=== PATIENT | male | born 1960 | race Caucasian/White ===

== ENCOUNTER 2023-05-25 05:44 | Emergency (ER) | payer OTHER ==
[2023-05-25] MEDS ORDERED: fentaNYL 50 mcg/mL 1 mL Vial ONE (06:10)
[2023-05-25 06:28] LABS: #Basophils 0.1 10x3/uL (0.0-0.2); #Eosinphils 0.2 10x3/uL (0.0-0.5); #Monocytes 0.7 10x3/uL (0.0-1.1); #Neutrophils 5.5 10x3/uL (1.5-8.4); %Basophils 0.8 % (0.0-2.0); %Eosinophils 2.6 % (0.0-6.0); %Lymphocytes 14.8 % (18.0-47.0); %Monocytes 9.4 % (0.0-10.0); %Neutrophils 72.1 % (40.0-75.0); Hematocrit 38.4 % (38.8-50.0); Mean Corpuscular HGB CONC 31.3 g/dL (32.0-36.0); Mean Corpuscular Hemoglobin 27.6 pg (27.0-33.0); Mean Corpuscular Volume 88.5 fl (81.2-95.1); Mean Platelet Volume 11.8 fl (7.4-10.4); Platelet Count 231 10x3/uL (150-450); RBC Distribution Width 15.9 % (11.5-14.5); Red Blood Cell (RBC) Count 4.34 10x6/uL (4.32-5.72); White Blood Cell (WBC) Count 7.6 10x3/uL (3.5-10.5)
[2023-05-25 06:48] LABS: Troponin I 0.022 ng/mL (< 0.028)
[2023-05-25 06:50] LABS: ALT (SGPT) 18 U/L (8-55); AST (SGOT) 24 U/L (5-34); Albumin 3.3 g/dL (3.4-4.8); Alkaline Phosphatase 96 U/L (40-110); Anion Gap 27 mmol/L (10-20); BUN (Urea Nitrogen) 67 mg/dL (8.4-25.7); Bilirubin, Total 1.5 mg/dL (0.2-1.2); Calc. Creatinine Clearance 0 mL/min (70-130); Calcium 7.7 mg/dL (7.8-10.44); Carbon Dioxide 23 mmol/L (23-31); Chloride 95 mmol/L (98-107); Estimated GFR 3; Globulin 4.7 g/dL (2.4-3.5); Glucose 148 mg/dL (80-115); INR-International Normal Ratio 2.8; Lipase 209 U/L (8-78); Magnesium 2.2 mg/dL (1.6-2.6); PTT 40.4 sec (22.0-33.0); Potassium 4.6 mmol/L (3.5-5.1); Prothrombin Time 29.8 sec (9.5-12.1); Sodium 140 mmol/L (136-145)
[2023-05-25 07:06] LABS: SARS-CoV-2 NAA Rapid Test Not Detected (NotDetected)
[2023-05-25 08:39] LABS: Actual Bicarbonate (HCO3a) 22.4 mEq/L (22-28); Analyzer IN Cardio CS ER; Base Excess (BEa) -1.8 mEq/L (-2.0 to +3.0); CO2 Tension 36.3 mmHg (35.0-45.0); Calcium, Ionized (arterial) 1.16 mmol/L (1.12-1.30); Carboxyhemoglobin (COHb) 0.3 gm% (0.0-3.0); Critical Notified Whom: ED MD; Hematocrit-ABG 38 % (42.0-52.0); O2 Tension (PaO2), arterial 76.6 mmHg (> 80.0); Puncture Site LRA; pH, Arterial 7.408 (7.35-7.45)
[2023-05-25 08:41] LABS: ALT (SGPT) 24 U/L (8-55); AST (SGOT) 38 U/L (5-34); Albumin 3.8 g/dL (3.4-4.8); Alkaline Phosphatase 137 U/L (40-110); Anion Gap 13 mmol/L (10-20); BUN (Urea Nitrogen) 24 mg/dL (8.4-25.7); Bilirubin, Total 0.9 mg/dL (0.2-1.2); Calc. Creatinine Clearance 0 mL/min (70-130); Calcium 8.6 mg/dL (7.8-10.44); Carbon Dioxide 25 mmol/L (23-31); Chloride 106 mmol/L (98-107); Estimated GFR 63; Globulin 3.4 g/dL (2.4-3.5); Glucose 139 mg/dL (80-115); Potassium 4.6 mmol/L (3.5-5.1); Protein, Total 7.2 g/dL (5.8-8.1); Sodium 139 mmol/L (136-145)
[2023-05-25 08:42] LABS: ALV-art Gradient 27.755 mmHg (0-20)
[2023-05-25 09:54] LABS: Troponin I Less than 0.010 ng/mL (< 0.028)
[2023-05-25 16:04] LABS: Troponin I Less than 0.010 ng/mL (< 0.028)
== END 2023-05-25 16:26 ==
LOC: CSHERS 05:44
DX: I24.9 Acute ischemic heart disease, unspecified (principal); I25.10 Atherosclerotic heart disease of native coronary artery without angina pectoris; I11.0 Hypertensive heart disease with heart failure; I50.9 Heart failure, unspecified; I48.91 Unspecified atrial fibrillation; E03.9 Hypothyroidism, unspecified; E78.5 Hyperlipidemia, unspecified; Z79.899 Other long term (current) drug therapy; Z79.82 Long term (current) use of aspirin; Z79.4 Long term (current) use of insulin; Z79.01 Long term (current) use of anticoagulants; Z20.822 Contact with and (suspected) exposure to COVID-19
CPT/HCPCS: 36415; 36600; 71045; 71250; 80053; 82805; 83690; 83735; 83880; 84484; 85025; 85610; 85730; 93005; 96374; J3010; U0002

== ENCOUNTER 2023-12-10 07:51 | Emergency (ER) | payer OTHER ==
[2023-12-10] MEDS ORDERED: Metoprolol Tartrate 5 MG (5 mL) VIAL ONE (08:28)
[2023-12-10] MEDS ORDERED: Furosemide 40 MG (4 mL) VIAL ONE (08:28)
[2023-12-10 08:29] LABS: Bilirubin Neg (Negative); Blood, Urine 150 (Negative); Clarity Clear (Clear); Glucose, Urine (Dipstick) >=1000 mg/dL (Negative); Ketone, Urine Negative (Negative); Leukocyte Negative (Negative); Nitrite Negative (Negative); Protein, Urine (Dipstick) 100 mg/dl (Neg-Trace); Urobilinogen Normal mg/dL (Less than 2)
[2023-12-10 09:19] LABS: #Basophils 0.05 10x3/uL (0.0-0.2); #Eosinphils 0.06 10x3/uL (0.0-0.5); #Monocytes 0.72 10x3/uL (0.0-1.1); #Neutrophils 9.43 10x3/uL (1.5-8.4); %Basophils 0.5 % (0.0-2.0); %Eosinophils 0.5 % (0.0-6.0); %Lymphocytes 6.3 % (18.0-47.0); %Monocytes 6.5 % (0.0-10.0); %Neutrophils 85.7 % (40.0-75.0); Hematocrit 39.9 % (38.8-50.0); Hemoglobin 12.8 g/dL (13.5-17.5); Mean Corpuscular HGB CONC 32.1 g/dL (32.0-36.0); Mean Corpuscular Volume 87.3 fL (81.2-95.1); Mean Platelet Volume 11.3 fL (7.4-10.4); Platelet Count 292 10x3/uL (150-450); RBC Distribution Width 17.6 % (11.5-14.5); Red Blood Cell (RBC) Count 4.57 10x6/uL (4.32-5.72)
[2023-12-10 09:20] LABS: CAUTI Indications for Culture Dysuria,urgency,freq; Squamous Epithelial 0-3 HPF (0-3); WBC/HPF 0-3 HPF (0-3)
[2023-12-10 09:22] LABS: Bacteria/HPF Rare-Few HPF (None Seen); Sperm/HPF Rare HPF (None Seen)
[2023-12-10 09:24] LABS: Urine Culture Reflex No No
[2023-12-10 09:32] LABS: ALT (SGPT) 25 U/L (8-55); AST (SGOT) 42 U/L (5-34); Albumin 3.3 g/dL (3.4-4.8); Alkaline Phosphatase 131 U/L (40-110); Anion Gap 19 mmol/L (10-20); BUN (Urea Nitrogen) 26 mg/dL (8.4-25.7); Bilirubin, Total 1.1 mg/dL (0.2-1.2); Calc. Creatinine Clearance 0 mL/min (70-130); Calcium 9.7 mg/dL (7.8-10.44); Carbon Dioxide 25 mmol/L (23-31); Chloride 100 mmol/L (98-107); Estimated GFR 71; Globulin 4.2 g/dL (2.4-3.5); Glucose 354 mg/dL (80-115); Potassium 4.7 mmol/L (3.5-5.1); Protein, Total 7.5 g/dL (5.8-8.1); Sodium 139 mmol/L (136-145)
[2023-12-10 09:34] LABS: Troponin I 0.017 ng/mL (< 0.028)
[2023-12-10] MEDS ORDERED: Piperacillin/Tazobactam 3.375 GM VIAL ONE (10:41)
[2023-12-10] MEDS ORDERED: VANCOMYCIN IVPB SCH (11:00)
[2023-12-10] MEDS ORDERED: SODIUM CHLORIDE 0.9% IVPB SCH (11:00)
[2023-12-10 12:26] LABS: Lactic Acid 2.2 mmol/L (0.5-2.2)
== END 2023-12-10 15:14 | disposition short-term general hospital (02) ==
LOC: CSHERS 07:51 → EEVIPCON 07:51 → CSHERS 15:14
DX: I48.91 Unspecified atrial fibrillation (principal); L03.116 Cellulitis of left lower limb; L03.115 Cellulitis of right lower limb; I11.0 Hypertensive heart disease with heart failure; I50.9 Heart failure, unspecified; Z79.82 Long term (current) use of aspirin; Z79.899 Other long term (current) drug therapy; Z79.4 Long term (current) use of insulin
CPT/HCPCS: 71045; 80053; 81001; 83605; 83880; 84484; 85025; 87040; 93005; J1940; J2543; J7030

== ENCOUNTER 2024-01-01 10:15 | Observation (INO) | payer OTHER ==
[2024-01-01] MEDS ORDERED: Ondansetron PF 4 MG/2 ML Vial IVP PRN (11:25)
[2024-01-01] MEDS ORDERED: Acetaminophen 650 MG Suppository PR PRN (11:25)
[2024-01-01 11:31] VITALS: BMI 37.2
[2024-01-01] MEDS ORDERED: Dextrose 5% in Water 1,000 ML IV PRN (11:40)
[2024-01-01] MEDS ORDERED: HumaLOG 300 UNITS/3 ML VIAL SC PRN (11:40)
[2024-01-01] MEDS ORDERED: Glucagon 1 MG/ML KIT IM PRN (11:40)
[2024-01-01] MEDS ORDERED: Dextrose 50% Abboject 50 ML SYRINGE SLOW IVP PRN (11:40)
[2024-01-01 12:01] LABS: Anion Gap 16 mmol/L (10-20); BUN (Urea Nitrogen) 16 mg/dL (8.4-25.7); Calc. Creatinine Clearance 108 mL/min (70-130); Calcium 9.1 mg/dL (7.8-10.44); Carbon Dioxide 20 mmol/L (23-31); Chloride 100 mmol/L (98-107); Estimated GFR 75; Glucose 396 mg/dL (80-115); Potassium 4.6 mmol/L (3.5-5.1); Sodium 131 mmol/L (136-145)
[2024-01-01 12:08] LABS: Troponin I 0.023 ng/mL (< 0.028)
[2024-01-01] MEDS: HumaLOG 300 UNITS/3 ML VIAL SC PRN (13:01)
[2024-01-01] MEDS: Enoxaparin 120 MG/0.8 ML SYRINGE SC SCH ×2 (13:01→21:26)
[2024-01-01 16:02] LABS: Troponin I 0.024 ng/mL (< 0.028)
[2024-01-01] MEDS: Carvedilol 25 MG TAB PO SCH (16:16)
[2024-01-01] MEDS ORDERED: Carvedilol 12.5 MG TAB PO SCH (17:00)
[2024-01-01] MEDS: Lisinopril 20 MG TAB PO SCH (21:26)
[2024-01-01] MEDS: Famotidine 20 MG TAB PO SCH (21:27)
[2024-01-01] MEDS: Atorvastatin Calcium 40 MG TAB PO SCH (21:27)
[2024-01-01] MEDS: Hydrochlorothiazide 25 MG TAB PO SCH (21:27)
[2024-01-01] MEDS: levETIRAcetam 500 MG TAB PO SCH (21:27)
[2024-01-01] MEDS: Carbidopa/Levodopa 25-100 mg Tablet PO SCH (21:27)
[2024-01-01] MEDS: Empagliflozin 10 MG TAB PO SCH (21:27)
[2024-01-01] MEDS: Aripiprazole 10 MG TAB PO SCH (21:28)
[2024-01-01] MEDS: Famotidine/PF 20 mg/2ml Vial SLOW IVP SCH (21:28)
[2024-01-01] MEDS: Insulin NPH Human Isophane 100 UNITS/ML (10 ML VIAL) SQ SCH (21:29)
[2024-01-01] MEDS: Acetaminophen 325 MG TAB PO PRN (21:46)
[2024-01-02 04:25] LABS: Anion Gap 13 mmol/L (10-20); BUN (Urea Nitrogen) 14 mg/dL (8.4-25.7); Calc. Creatinine Clearance 147 mL/min (70-130); Carbon Dioxide 22 mmol/L (23-31); Chloride 103 mmol/L (98-107); Cholesterol 143 mg/dl (< 200 Desired); Estimated GFR 99; Glucose 75 mg/dL (80-115); HDL Cholesterol 48 mg/dL (>60 Neg Risk); LDL Cholesterol, Calculated 86 mg/dL; Potassium 4.1 mmol/L (3.5-5.1); Sodium 134 mmol/L (136-145); Triglycerides 43 mg/dL (Less than 150)
[2024-01-02] MEDS: Levothyroxine Sodium 100 MCG TAB PO SCH (06:36)
[2024-01-02] MEDS: Aspirin Chewable 81 MG TAB PO SCH (09:19)
[2024-01-02] MEDS: DULoxetine 30 MG CAP PO SCH (09:19)
[2024-01-02] MEDS: Saccharomyces boulardii 250 MG CAP PO SCH (10:24)
[2024-01-02] MEDS: Thiamine 100 MG TAB PO SCH (10:25)
[2024-01-02] MEDS: Insulin NPH Human Isophane 100 UNITS/ML (10 ML VIAL) SQ SCH (21:54)
[2024-01-02] MEDS: Enoxaparin 120 MG/0.8 ML SYRINGE SC SCH (21:56)
[2024-01-02 23:05] VITALS: BP 105/52; TEMP 97.2
[2024-01-03] MEDS ORDERED: Enoxaparin 120 MG/0.8 ML SYRINGE SC SCH (09:00)
== END 2024-01-02 23:00 ==
LOC: EEVIPCON 10:55 → CSHTELE 10:55 → INTOOBSV 10:55
PROVIDERS: ADMIT Family Medicine; ATTEND Family Medicine
DX: R07.89 Other chest pain (principal); I25.10 Atherosclerotic heart disease of native coronary artery without angina pectoris; I48.19 Other persistent atrial fibrillation; E03.9 Hypothyroidism, unspecified; E11.9 Type 2 diabetes mellitus without complications; I11.0 Hypertensive heart disease with heart failure; I50.9 Heart failure, unspecified; G40.909 Epilepsy, unspecified, not intractable, without status epilepticus; F25.9 Schizoaffective disorder, unspecified; I48.91 Unspecified atrial fibrillation; N40.0 Benign prostatic hyperplasia without lower urinary tract symptoms; G20.A1 Parkinson's disease without dyskinesia, without mention of fluctuations; W19.XXXA Unspecified fall, initial encounter; Z95.5 Presence of coronary angioplasty implant and graft; Z79.82 Long term (current) use of aspirin; Z79.890 Hormone replacement therapy; Z79.899 Other long term (current) drug therapy; Z79.4 Long term (current) use of insulin; Z95.810 Presence of automatic (implantable) cardiac defibrillator
CPT/HCPCS: 36415; 36416; 80048; 80061; 96372; 96374; 96376; G0378; J1650; J1815; S0028

== ENCOUNTER 2024-01-10 23:38 | Observation (INO) | payer OTHER ==
[2024-01-11 00:36] LABS: ALT (SGPT) Less than 7 U/L (8-55); AST (SGOT) 20 U/L (5-34); Albumin 3.2 g/dL (3.4-4.8); Alkaline Phosphatase 139 U/L (40-110); Anion Gap 14 mmol/L (10-20); BUN (Urea Nitrogen) 24 mg/dL (8.4-25.7); Bilirubin, Total 0.6 mg/dL (0.2-1.2); Calc. Creatinine Clearance 0 mL/min (70-130); Calcium 8.7 mg/dL (7.8-10.44); Carbon Dioxide 26 mmol/L (23-31); Chloride 100 mmol/L (98-107); Estimated GFR 55; Globulin 3.6 g/dL (2.4-3.5); Magnesium 1.9 mg/dL (1.6-2.6); Potassium 4.4 mmol/L (3.5-5.1); Protein, Total 6.8 g/dL (5.8-8.1); Sodium 136 mmol/L (136-145)
[2024-01-11 00:37] LABS: #Basophils 0.06 10x3/uL (0.0-0.2); #Eosinphils 0.15 10x3/uL (0.0-0.5); #Monocytes 0.59 10x3/uL (0.0-1.1); #Neutrophils 5.98 10x3/uL (1.5-8.4); %Basophils 0.8 % (0.0-2.0); %Lymphocytes 11.1 % (18.0-47.0); %Monocytes 7.7 % (0.0-10.0); %Neutrophils 77.9 % (40.0-75.0); Hematocrit 34.8 % (38.8-50.0); Hemoglobin 11.2 g/dL (13.5-17.5); Mean Corpuscular HGB CONC 32.2 g/dL (32.0-36.0); Mean Corpuscular Hemoglobin 27.8 pg (27.0-33.0); Mean Corpuscular Volume 86.4 fL (81.2-95.1); Mean Platelet Volume 11.5 fL (7.4-10.4); Platelet Count 283 10x3/uL (150-450); RBC Distribution Width 16.1 % (11.5-14.5); Red Blood Cell (RBC) Count 4.03 10x6/uL (4.32-5.72); White Blood Cell (WBC) Count 7.7 10x3/uL (3.5-10.5)
[2024-01-11 00:38] LABS: Critical Call Chemistry NUR.AEB@0038; Glucose 527 mg/dL (80-115)
[2024-01-11 00:42] LABS: Troponin I 0.014 ng/mL (< 0.028)
[2024-01-11] MEDS ORDERED: Glucagon 1 MG/ML KIT IM PRN (02:05)
[2024-01-11] MEDS ORDERED: Dextrose 50% Abboject 50 ML SYRINGE SLOW IVP PRN (02:05)
[2024-01-11] MEDS ORDERED: HumaLOG 300 UNITS/3 ML VIAL SC PRN (02:05)
[2024-01-11] MEDS ORDERED: Dextrose 5% in Water 1,000 ML IV PRN (02:05)
[2024-01-11] MEDS ORDERED: Ondansetron ODT 4 MG TAB PO PRN (02:11)
[2024-01-11] MEDS ORDERED: Ondansetron PF 4 MG/2 ML Vial IVP PRN (02:11)
[2024-01-11 02:28] LABS: #Basophils 0.06 10x3/uL (0.0-0.2); #Eosinphils 0.14 10x3/uL (0.0-0.5); #Monocytes 0.76 10x3/uL (0.0-1.1); #Neutrophils 5.41 10x3/uL (1.5-8.4); %Basophils 0.8 % (0.0-2.0); %Eosinophils 1.9 % (0.0-6.0); %Lymphocytes 12.9 % (18.0-47.0); %Monocytes 10.3 % (0.0-10.0); %Neutrophils 73.6 % (40.0-75.0); Hematocrit 35.6 % (38.8-50.0); Hemoglobin 11.8 g/dL (13.5-17.5); Mean Corpuscular HGB CONC 33.1 g/dL (32.0-36.0); Mean Corpuscular Hemoglobin 28.4 pg (27.0-33.0); Mean Corpuscular Volume 85.8 fL (81.2-95.1); Mean Platelet Volume 11.5 fL (7.4-10.4); Platelet Count 260 10x3/uL (150-450); RBC Distribution Width 16.1 % (11.5-14.5); Red Blood Cell (RBC) Count 4.15 10x6/uL (4.32-5.72); White Blood Cell (WBC) Count 7.4 10x3/uL (3.5-10.5)
[2024-01-11 02:50] LABS: Troponin I 0.017 ng/mL (< 0.028)
[2024-01-11 02:56] LABS: ALT (SGPT) 9 U/L (8-55); AST (SGOT) 22 U/L (5-34); Albumin 3.3 g/dL (3.4-4.8); Alkaline Phosphatase 142 U/L (40-110); Anion Gap 15 mmol/L (10-20); BUN (Urea Nitrogen) 24 mg/dL (8.4-25.7); Bilirubin, Total 0.6 mg/dL (0.2-1.2); Calc. Creatinine Clearance 0 mL/min (70-130); Calcium 8.7 mg/dL (7.8-10.44); Carbon Dioxide 23 mmol/L (23-31); Chloride 102 mmol/L (98-107); Estimated GFR 59; Globulin 3.8 g/dL (2.4-3.5); Potassium 4.3 mmol/L (3.5-5.1); Protein, Total 7.1 g/dL (5.8-8.1); Sodium 136 mmol/L (136-145)
[2024-01-11 03:09] LABS: Critical Call Chemistry NUR.AEB@0309; Glucose 478 mg/dL (80-115)
[2024-01-11] MEDS ORDERED: Insulin Regular 300 UNITS/3 ML VIAL SC SCH (03:15)
[2024-01-11] MEDS: HumaLOG 300 UNITS/3 ML VIAL SC SCH ×3 (03:59→05:10)
[2024-01-11] MEDS: Ketorolac Tromethamine 30 MG (1 mL) VIAL IVP PRN (04:01)
[2024-01-11] MEDS: Insulin Regular, Human 100 UNIT/ML 10 ML VIAL SC SCH (04:16)
[2024-01-11 04:37] LABS: Bilirubin Neg (Negative); Blood, Urine 25 (Negative); Clarity Clear (Clear); Glucose, Urine (Dipstick) >=1000 mg/dL (Negative); Ketone, Urine Negative (Negative); Leukocyte Negative (Negative); Nitrite Negative (Negative); Protein, Urine (Dipstick) 30 mg/dl (Neg-Trace); Urobilinogen Normal mg/dL (Less than 2)
[2024-01-11 04:54] LABS: Bacteria/HPF None Seen HPF (None Seen); CAUTI Indications for Culture Dysuria,urgency,freq; RBC/HPF 0-3 HPF (0-3); Squamous Epithelial None Seen HPF (0-3); WBC/HPF None Seen HPF (0-3)
[2024-01-11 04:55] LABS: Urine Culture Reflex No No
[2024-01-11 04:57] VITALS: BMI 36.8
[2024-01-11] MEDS: Acetaminophen 325 MG TAB PO SCH (05:07)
[2024-01-11 05:14] LABS: Influenza A by NAA Not Detected (NotDetected); Influenza B by NAA Not Detected (NotDetected); RSV by NAA Not Detected (NotDetected); SARS-CoV-2 NAA Rapid Test Not Detected (NotDetected)
[2024-01-11] MEDS: Levothyroxine Sodium 100 MCG TAB PO SCH (05:46)
[2024-01-11] MEDS: Nitroglycerin 2% Ointment 1 INCH/1 GM Packet TOP SCH (05:47)
[2024-01-11 06:27] LABS: Troponin I 0.015 ng/mL (< 0.028)
[2024-01-11 06:32] LABS: Phosphorus 3.3 mg/dL (2.3-4.7)
[2024-01-11] MEDS ORDERED: Furosemide 40 MG TAB PO SCH (07:30)
[2024-01-11] MEDS ORDERED: Potassium Chloride 10 MEQ TAB PO SCH (08:00)
[2024-01-11] MEDS: Thiamine 100 MG TAB PO SCH (08:49)
[2024-01-11] MEDS: levETIRAcetam 500 MG TAB PO SCH (08:49)
[2024-01-11] MEDS: DULoxetine 30 MG CAP PO SCH (08:51)
[2024-01-11] MEDS: Saccharomyces boulardii 250 MG CAP PO SCH (08:51)
[2024-01-11] MEDS: Pantoprazole DR 40 MG TAB PO SCH (08:51)
[2024-01-11] MEDS: Aspirin Chewable 81 MG TAB PO SCH (08:52)
[2024-01-11] MEDS: traMADol HCl 50 MG TAB PO PRN (08:53)
[2024-01-11] MEDS: pyridOXINE 50 MG (B6) TAB PO SCH (08:55)
[2024-01-11] MEDS: Carbidopa/Levodopa 25-100 mg Tablet PO SCH (08:55)
[2024-01-11 10:03] VITALS: BMI 36.8
[2024-01-11] MEDS: Polyethylene Glycol 3350 17 GM Packet PO SCH (12:00)
[2024-01-11] MEDS: Lactulose 20 GM (30 mL) UDCUP PO SCH (16:00)
[2024-01-11] MEDS ORDERED: Lisinopril 20 MG TAB PO SCH (21:00)
[2024-01-11] MEDS: Rivaroxaban 10 MG TAB PO SCH (21:54)
[2024-01-11] MEDS: Empagliflozin 10 MG TAB PO SCH (21:54)
[2024-01-11] MEDS: Aripiprazole 10 MG TAB PO SCH (22:35)
[2024-01-12] MEDS: HumaLOG 300 UNITS/3 ML VIAL SC PRN (06:17)
[2024-01-12] MEDS: Insulin NPH Human Isophane 100 UNITS/ML (10 ML VIAL) SQ SCH (08:31)
[2024-01-12] MEDS: Polyethylene Glycol 3350 17 GM Packet PO SCH (08:33)
[2024-01-12 09:31] LABS: Anion Gap 14 mmol/L (10-20); BUN (Urea Nitrogen) 25 mg/dL (8.4-25.7); Calc. Creatinine Clearance 101 mL/min (70-130); Calcium 8.9 mg/dL (7.8-10.44); Carbon Dioxide 23 mmol/L (23-31); Chloride 102 mmol/L (98-107); Estimated GFR 71; Glucose 224 mg/dL (80-115); Sodium 134 mmol/L (136-145)
[2024-01-12 09:58] LABS: Potassium 5.1 mmol/L (3.5-5.1)
[2024-01-12] MEDS: Mineral Oil ENEMA PR SCH (13:53)
[2024-01-12 16:56] VITALS: BP 145/67; TEMP 97.5
[2024-01-12] MEDS ORDERED: Aspirin 81 mg Enteric Coated Tablet PO SCH (21:00)
[2024-01-12] MEDS ORDERED: Atorvastatin Calcium 40 MG TAB PO SCH (21:00)
[2024-01-12] MEDS ORDERED: Insulin NPH Human Isophane 100 UNITS/ML (10 ML VIAL) SQ SCH (21:00)
== END 2024-01-13 00:30 ==
LOC: CSHERS 23:38 → EEVIPCON 23:38 → CSHTELE 01-11 02:00
PROVIDERS: ADMIT Internal Medicine; ATTEND Internal Medicine
DX: R07.89 Other chest pain (principal); I48.19 Other persistent atrial fibrillation; I11.0 Hypertensive heart disease with heart failure; I50.33 Acute on chronic diastolic (congestive) heart failure; N17.9 Acute kidney failure, unspecified; E11.65 Type 2 diabetes mellitus with hyperglycemia; E78.5 Hyperlipidemia, unspecified; E03.9 Hypothyroidism, unspecified; G20.A1 Parkinson's disease without dyskinesia, without mention of fluctuations; F25.9 Schizoaffective disorder, unspecified; I25.10 Atherosclerotic heart disease of native coronary artery without angina pectoris; G40.909 Epilepsy, unspecified, not intractable, without status epilepticus; I87.2 Venous insufficiency (chronic) (peripheral); Z79.4 Long term (current) use of insulin; Z79.01 Long term (current) use of anticoagulants; Z79.82 Long term (current) use of aspirin; Z79.890 Hormone replacement therapy; Z79.899 Other long term (current) drug therapy; Z90.89 Acquired absence of other organs
CPT/HCPCS: 0241U; 36415; 36416; 71045; 71250; 74177; 80048; 80053; 81001; 83735; 83880; 84100; 84145; 84484; 85025; 86140; 93005; 93970; 94760; 94762; 96360; 96374; 97139; G0378; J1815; J1885

== ENCOUNTER 2024-04-27 02:24 | Emergency (ER) | payer OTHER ==
[2024-04-27] MEDS ORDERED: Furosemide 40 MG (4 mL) VIAL ONE (02:47)
[2024-04-27] MEDS ORDERED: Nitroglycerin 2% Ointment 1 INCH/1 GM Packet ONE (02:48)
[2024-04-27] MEDS ORDERED: HYDROcodone/Acetaminophen 5/325 mg Tablet ONE (02:53)
[2024-04-27 02:59] LABS: #Basophils 0.06 10x3/uL (0.0-0.2); #Eosinophils 0.19 10x3/uL (0.0-0.5); #Neutrophils 4.61 10x3/uL (1.5-8.4); %Basophils 0.9 % (0.0-2.0); %Eosinophils 2.9 % (0.0-6.0); %Monocytes 9.3 % (0.0-10.0); %Neutrophils 71.4 % (40.0-75.0); Hematocrit 37.8 % (38.8-50.0); Hemoglobin 12.3 g/dL (13.5-17.5); Mean Corpuscular HGB CONC 32.5 g/dL (32.0-36.0); Mean Corpuscular Hemoglobin 29.1 pg (27.0-33.0); Mean Corpuscular Volume 89.6 fL (81.2-95.1); Mean Platelet Volume 10.1 fL (7.4-10.4); Platelet Count 310 10x3/uL (150-450); RBC Distribution Width 16.8 % (11.5-14.5); Red Blood Cell (RBC) Count 4.22 10x6/uL (4.32-5.72); White Blood Cell (WBC) Count 6.5 10x3/uL (3.5-10.5)
[2024-04-27 03:15] LABS: Anion Gap 15 mmol/L (10-20); BUN (Urea Nitrogen) 21 mg/dL (8.4-25.7); Calc. Creatinine Clearance 0 mL/min (70-130); Carbon Dioxide 23 mmol/L (23-31); Chloride 105 mmol/L (98-107); Potassium 4.5 mmol/L (3.5-5.1); Sodium 138 mmol/L (136-145)
[2024-04-27 03:16] LABS: ALT (SGPT) 19 U/L (8-55); AST (SGOT) 35 U/L (5-34); Albumin 3.3 g/dL (3.4-4.8); Alkaline Phosphatase 158 U/L (40-110); Bilirubin, Total 0.9 mg/dL (0.2-1.2); Calcium 8.8 mg/dL (7.8-10.44); Estimated GFR 86; Globulin 3.8 g/dL (2.4-3.5); Glucose 243 mg/dL (80-115); Magnesium 1.9 mg/dL (1.6-2.6); Protein, Total 7.1 g/dL (5.8-8.1)
[2024-04-27 03:21] LABS: Troponin I 0.029 ng/mL (< 0.028)
[2024-04-27 04:15] LABS: Bilirubin Neg (Negative); Blood, Urine Negative (Negative); Clarity Clear (Clear); Glucose, Urine (Dipstick) Normal (Negative); Ketone, Urine Negative (Negative); Leukocyte 25 (Negative); Nitrite Negative (Negative); Protein, Urine (Dipstick) 30 mg/dl (Neg-Trace); Urobilinogen Normal mg/dL (Less than 2)
[2024-04-27] MEDS ORDERED: dilTIAZem 25 MG/5 ML VIAL ONE (04:22)
[2024-04-27 04:34] LABS: Bacteria/HPF Rare-Few HPF (None Seen); CAUTI Indications for Culture Pelvic or flank pain; RBC/HPF 0-3 HPF (0-3); Squamous Epithelial None Seen HPF (0-3); WBC/HPF 0-3 HPF (0-3)
[2024-04-27 04:35] LABS: Urine Culture Reflex No No
== END 2024-04-27 06:39 | disposition short-term general hospital (02) ==
LOC: EEVIPCON 02:24 → CSHERS 02:24
DX: I11.0 Hypertensive heart disease with heart failure (principal); I50.9 Heart failure, unspecified; I48.91 Unspecified atrial fibrillation; I25.10 Atherosclerotic heart disease of native coronary artery without angina pectoris; E11.40 Type 2 diabetes mellitus with diabetic neuropathy, unspecified; E03.9 Hypothyroidism, unspecified; E78.5 Hyperlipidemia, unspecified; M19.90 Unspecified osteoarthritis, unspecified site; G40.409 Other generalized epilepsy and epileptic syndromes, not intractable, without status epilepticus; Z95.5 Presence of coronary angioplasty implant and graft; Z79.01 Long term (current) use of anticoagulants; Z79.82 Long term (current) use of aspirin; Z79.4 Long term (current) use of insulin; Z79.899 Other long term (current) drug therapy; Z55.6 Problems related to health literacy
CPT/HCPCS: 71045; 76870; 80053; 81001; 83735; 83880; 84484; 85025; 93005; 93976; 96374; 96375; J1940

== ENCOUNTER 2024-08-17 09:03 | Emergency (ER) | payer OTHER ==
[2024-08-17 10:02] LABS: #Basophils 0.04 10x3/uL (0.0-0.2); #Eosinophils 0.14 10x3/uL (0.0-0.5); #Monocytes 0.53 10x3/uL (0.0-1.1); #Neutrophils 4.41 10x3/uL (1.5-8.4); %Basophils 0.7 % (0.0-2.0); %Eosinophils 2.3 % (0.0-6.0); %Lymphocytes 15.3 % (18.0-47.0); %Monocytes 8.7 % (0.0-10.0); %Neutrophils 72.5 % (40.0-75.0); Hematocrit 37.7 % (38.8-50.0); Hemoglobin 12.5 g/dL (13.5-17.5); Mean Corpuscular HGB CONC 33.2 g/dL (32.0-36.0); Mean Corpuscular Hemoglobin 28.9 pg (27.0-33.0); Mean Corpuscular Volume 87.3 fL (81.2-95.1); Platelet Count 260 10x3/uL (150-450); RBC Distribution Width 16.2 % (11.5-14.5); Red Blood Cell (RBC) Count 4.32 10x6/uL (4.32-5.72); White Blood Cell (WBC) Count 6.08 10x3/uL (3.5-10.5)
[2024-08-17 10:09] LABS: ALT (SGPT) 22 U/L (Less than 45); AST (SGOT) 36 U/L (11-34); Albumin 3.3 g/dL (3.1-4.5); Alkaline Phosphatase 124 U/L (40-110); Anion Gap 15 mmol/L (10-20); BUN (Urea Nitrogen) 14 mg/dL (8.4-25.7); Calc. Creatinine Clearance 0 mL/min (70-130); Calcium 8.9 mg/dL (7.8-10.44); Carbon Dioxide 23 mmol/L (23-31); Chloride 103 mmol/L (98-107); Estimated GFR 98; Globulin 3.2 g/dL (2.4-3.5); Glucose 165 mg/dL (80-115); Potassium 4.3 mmol/L (3.5-5.1); Protein, Total 6.5 g/dL (5.8-8.1); Sodium 137 mmol/L (136-145)
[2024-08-17] MEDS ORDERED: Furosemide 40 MG (4 mL) VIAL ONE (10:55)
[2024-08-17 11:33] LABS: Bilirubin Neg (Negative); Blood, Urine Negative (Negative); Clarity Clear (Clear); Glucose, Urine (Dipstick) Normal (Negative); Ketone, Urine Negative (Negative); Leukocyte Negative (Negative); Nitrite Negative (Negative); Protein, Urine (Dipstick) 30 mg/dl (Neg-Trace)
[2024-08-17 12:00] LABS: Bacteria/HPF Rare-Few HPF (None Seen); CAUTI Indications for Culture Pelvic or flank pain; RBC/HPF None Seen HPF (0-3)
[2024-08-17 12:01] LABS: Urine Culture Reflex No No
== END 2024-08-17 17:24 | disposition short-term general hospital (02) ==
LOC: CSHERS 09:03 → EEVIPCON 09:03 → CSHERS 17:24
DX: R07.9 Chest pain, unspecified (principal); I11.0 Hypertensive heart disease with heart failure; I50.9 Heart failure, unspecified; E11.40 Type 2 diabetes mellitus with diabetic neuropathy, unspecified; I25.10 Atherosclerotic heart disease of native coronary artery without angina pectoris; I48.91 Unspecified atrial fibrillation; Z79.01 Long term (current) use of anticoagulants; Z79.02 Long term (current) use of antithrombotics/antiplatelets; Z79.82 Long term (current) use of aspirin; Z79.899 Other long term (current) drug therapy; Z95.0 Presence of cardiac pacemaker; E03.9 Hypothyroidism, unspecified
CPT/HCPCS: 36415; 71045; 76870; 80053; 81001; 83880; 84484; 85025; 93005; 93976; 96374; J1940